=== PATIENT | male | born 1975 | race Asian ===

== ENCOUNTER 2019-11-06 03:32 | Emergency (ER) | payer OTHER ==
[~2019-11-06] VITALS: Ht 162.6 cm; Wt 68.0 kg
[2019-11-06 03:40] VITALS: Ht 162.6 cm; Wt 68.0 kg
[2019-11-06 04:08] LABS: BASOPHIL % 0.8 % (0-2); PLATELET COUNT 288 x10^3mcL (130-400); RED CELL DISTRIBUTION WIDTH 12.1 % (11.5-14.5)
[2019-11-06 04:27] LABS: CALCIUM 8.9 mg/dL (8.5-10.1); CARBON DIOXIDE 21.7 mmol/L (21-32); CHLORIDE SERUM 105 mmol/L (98-107); CREATININE SERUM 1.4 mg/dL (0.7-1.3); GFR1 58 mL/min; GLUCOSE SERUM 136 mg/dL (74-106); POTASSIUM SERUM 3.6 mmol/L (3.5-5.1); SODIUM SERUM 142 mmol/L (136-145)
[2019-11-06 04:31] LABS: ALBUMIN 3.8 g/dL (3.4-5.0); ALKALINE PHOSPHATASE 48 U/L (46-116); ALT/SGPT 55 U/L (16-63); AST/SGOT 24 U/L (15-37); BILIRUBIN TOTAL 0.3 mg/dL (0.20-1.00); CHOLESTEROL 157 mg/dL (<200); TOTAL PROTEIN, SERUM 7.4 g/dL (6.4-8.2)
[2019-11-06 05:22] LABS: AMPHETAMINE QUAL UR NONE DETECTED (See below)
[2019-11-06 05:54] VITALS: BP 129/91
== END 2019-11-06 05:54 | disposition home or self-care (01) ==
LOC: ED 03:32
PROVIDERS: Specialist
DX: R56.9 Unspecified convulsions (principal); S01.512A Laceration without foreign body of oral cavity, initial encounter; X58.XXXA Exposure to other specified factors, initial encounter; Y93.89 Activity, other specified; Y92.89 Other specified places as the place of occurrence of the external cause; Y99.8 Other external cause status
CPT/HCPCS: G0480; Q0092